=== PATIENT | female | born 1990 | race Caucasian/White ===

== ENCOUNTER → 2017-06-15 | Outpatient (CLI) | payer BC ==
[~2017-06-15] MED LIST: LEVO112T2 PO; PRENTAB26 PO
== END | disposition home or self-care (01) ==
LOC: C.LABBFT 11:35
PROVIDERS: ATTEND Nurse Practitioner
DX: E03.9 Hypothyroidism, unspecified (principal)

== ENCOUNTER 2021-05-23 00:05 | Inpatient (IN) ==
[2021-05-23] MEDS ORDERED: HYDROCORTISONE ACETATE 25 MG SUPP PR PRN (00:47)
[2021-05-23] MEDS ORDERED: BENZOCAINE 20% AER SPR 82.5 GM CAN EXT PRN (00:47)
[2021-05-23] MEDS ORDERED: LACTATED RINGER'S 1,000 ML IV PRN (00:47)
[2021-05-23] MEDS ORDERED: DIPHTHERIA/TETANUS/PERTUSSIS 0.5 ML SYR/VIAL IM ONE (00:47)
[2021-05-23] MEDS ORDERED: ACETAMINOPHEN 325 MG TAB PO PRN (00:47)
[2021-05-23] MEDS ORDERED: OXYTOCIN 30 UNITS/500 ML BAG IV PRN ×2 (00:47)
[2021-05-23] MEDS ORDERED: IBUPROFEN 600 MG TAB PO ONE (00:53)
[2021-05-23] MEDS: IBUPROFEN 600 MG TAB PO PRN ×3 (06:28→20:22)
[2021-05-23] MEDS: LEVOTHYROXINE SODIUM 125 MCG TABLET PO SCH (06:29)
--- NOTE | 2021-05-23 07:28 | Delivery Summary ---
DATE OF SERVICE: 05/23/2021 PROCEDURE: Normal spontaneous vaginal delivery. SURGEON: Don Salinas MD. PREOPERATIVE DIAGNOSES: 1. Single intrauterine at 40 weeks 4 days gestational age. 2. Hypothyroidism. 3. Active labor. POSTOPERATIVE DIAGNOSES: 1. Single intrauterine at 40 weeks 4 days gestational age. 2. Hypothyroidism active labor. 3. Active labor. 4. Status post procedure. ESTIMATED BLOOD LOSS: 50 mL. DRAINS: None. FLUIDS: Continuous lactated Ringer. URINE OUTPUT: None. COMPLICATIONS: None. FINDINGS: Viable with weight pending and Apgars of 8 and 9 [facility] INDICATIONS: Ms. Arroyo is a 31-year-old G2, P1-0-0-1, at 40 weeks 4 days gestational age, came in ac tive labor at fully dilated with strong urge to push. The patient was quickly prepped for delivery a nd delivered with pushing over 2 contractions to achieve delivery. DESCRIPTION OF PROCEDURE: The patient progressed to 10 cm dilated, 100% effaced, positive 2 station, pushed over intact perineum without anesthesia and delivered a viable with weight and Apgars as noted above. Head of the delivered in MIAH position, restituted to right transverse. No nuchal cord was noted. Body and shoulders quickly followed. was noted to be vigorous soon a fter delivery and 1 minute delayed cord clamping was initiated. Cord was then double clamped and cut . remained on maternal abdomen. Cord blood was obtained. Attention was then turned to javoni very of the placenta, which was delivered intact, 3-vessel cord, gentle cord traction. On inspection of the perineum, vagina, cervix, there was noted to be a small labial laceration, which was so small , was not repaired. Sponge and instrument counts were correct at the completion of the case. Both mo ther and stable in the immediate post-delivery period. Job ID: [id number]
[2021-05-23] MEDS: PRENATAL VITAMIN 1 TAB PO SCH (08:42)
[2021-05-23] MEDS: DOCUSATE SODIUM 100 MG CAP PO SCH ×2 (08:42→20:22)
[2021-05-24] MEDS: IBUPROFEN 600 MG TAB PO PRN (04:10)
[2021-05-24] MEDS: LEVOTHYROXINE SODIUM 125 MCG TABLET PO SCH (06:39)
--- NOTE | 2021-05-24 07:04 | Obstetrical Progress Note ---
Date of Service <Zuri Quach MD - Last Filed: 05/24/21 08:06> May 24, 2021 Assessment & Plan <Zuri Quach MD - Last Filed: 05/24/21 08:06> (1) Encounter for care and examination after delivery: PPD 1: stable, routine management * patient voiding and ambulating without difficulty * pain well controlled on analgesia * tolerating regular diet * bottle and pump feeding * anticipate d/c today- otherwise observe on L&D floor today and reassess d/c readiness tomorrow AM <Radha Forte MD, FACOG - Last Filed: 05/24/21 08:06> (1) Encounter for care and examination after delivery: Subjective <Zuri Quach MD - Last Filed: 05/24/21 08:06> Deepti is a 31 y/o who is now PPD 1 following spontaneous vaginal delivery at 40.4 weeks. Reports feeling well overall this morning. Minimal pain well managed on analgesics. Voiding well. Tolerating meals w/o nausea or vomiting and is able to ambulate on her own. Bleeding is much improved this morning. Bottle feeding + pump feeding. Review of Systems Denies fever, chills, sweats Denies shortness of breath, difficulty breathing, chest pain, palpitations, chest pressure. Denies breast pain. Denies dysuria. Denies headache or changes in vision Physical Exam <Zuri Quach MD - Last Filed: 05/24/21 08:06> General: Alert, oriented. No acute distress. Cardiac: Regular rate and rhythm, no murmurs/rubs/gallops. Respiratory: Clear to auscultation bilaterally a/p, no wheezes/rales/rhonchi. No increased work of breathing. Symmetrical chest rise. No respiratory distress. Abdomen: Soft, nontender, nondistended. Bowel sounds present. Uterus: Uterine fundus firm, palpable at the umbilicus. Lower Extremities: No lower extremity edema or swelling. No deep calf pain. Edmond's negative bilaterally.. Results & Data ([facility]) <Zuri Quach MD - Last Filed: 05/24/21 08:06> Vital Signs (Past 12 Hours) Vital Signs Temp Pulse Pulse Resp BP Pulse Ox 05/23/21 23:45 37.0 C 62 16 100/66 97 05/23/21 20:10 37.0 C 68 16 109/67 98 <Radha Forte MD, FACOG - Last Filed: 05/24/21 08:06> Co-Signing Physician Notes Resident Physician Supervision Note: I interviewed and examined the patient. Discussed with Dr. Quach and agree with findings and plan as documented in the note. Any exceptions or clarifications are listed here: Doing well. Desires d/c. Instructions given. Documented By: Radha Forte MD, FACOG Resident Activity Tracking <Zuri Quach MD - Last Filed: 05/24/21 08:06> Resident Involvement: Resident Care Provided Care Provided: OB Delivery
[2021-05-24 07:20] LABS: Hematocrit (blood only) 32.4 % (37-47); Mean Corpuscular Hemoglobin 29.6 pg (25-34); Mean Corpuscular Volume 87.3 fL (80-100); Mean Platelet Volume 10.3 fL (7.4-10.4); Platelet Count 279 K/uL (130-400); RDW Coefficient of Variation 14.8 % (11.5-14.5); RDW Standard Deviation 47.2 fL (36.4-46.3); Red Blood Count 3.71 M/uL (4.2-5.4); White Blood Count 12.42 K/uL (4.8-10.8)
[2021-05-24] MEDS: PRENATAL VITAMIN 1 TAB PO SCH (07:25)
[2021-05-24] MEDS: DOCUSATE SODIUM 100 MG CAP PO SCH (07:25)
[2021-05-24] MEDS ORDERED: bisacodyL 5 MG TABEC PO SCH (20:00)
[2021-05-25] MEDS ORDERED: bisacodyL 10 MG SUPP PR PRN
== END 2021-05-24 11:15 | disposition home or self-care (01) | DRG 807 ==
LOC: OPB 00:05 → 4S1 00:13 → 4E1 03:20